=== PATIENT | female | born 2005 | race Caucasian/White ===

== ENCOUNTER 2023-04-21 23:16 | Outpatient (CLI) | payer BC, SELFPAY | END 2023-04-21 23:17 | disposition home or self-care (01) | LOC: AMB 04-26 09:40 | PROVIDERS: Visit Provider Family Medicine | DX: R00.0 Tachycardia, unspecified (principal) | CPT/HCPCS: A0998 ==

== ENCOUNTER 2023-04-22 | Emergency (ER) | payer BC, SELFPAY ==
[2023-04-22 00:06] VITALS: BP 128/79; PULSE 92; RESP 20; TEMP 36.5; O2SAT 97; BMI 22.6
--- NOTE | 2023-04-22 00:20 | ED.GENADULT ---
HPI - General Adult General Chief complaint: Chest Pain Stated complaint: heart palpitations Time Seen by Provider: 04/22/23 00:20 History of Present Illness HPI narrative: Pt aox4, ABCs intact. Pt arrives via [employer] for further evaluation of chest palpitations. Patient states that she has been having difficulty falling asleep at night and tonight she was trying to go sleep around 2100 when she started having chest palpitations and shortness of breath as well as feeling flushed. Patient was signed by EMS but patient decided to come in for further evaluation because she states that it feels different than panic attacks that she's had in the past. 17-year-old woman presenting to the emergency department after trying to go to sleep and suddenly started to feel hot as she gestures to her upper chest and face and then started to feel her heart beating very hard. Does have a history of recurrent panic attacks noting a couple a day but this felt different. She mentions what I would perceive as some worry or anxiety around needing to be up shortly to train for competitive swimming. Believe she was to do some weightlifting. And then had what sounds like a busy day of course work which would of [place] at the end of the day with training again. Has been having trouble sleeping lately and was worried about not being able to fall asleep. She does have some residual lower left chest pain that this sounds to be somewhat reproducible. No preceding cough or cold symptoms. No fever. Was evaluated by EMS and signed but ultimately presenting to the emergency department as she is concerned something else might be going on. Does have a history of asthma and wonders if this might have been playing a role. She is accompanied by a friend and then later her mother arrives. She denies having history of exercise intolerance. No arrhythmia history. No sudden cardiac in family. Related Data Home Medications Medication Instructions Recorded Confirmed bupropion HCl 75 mg tablet 75 mg PO TID 04/22/23 04/22/23 ipratropium 18 mcg-albuterol 103 spray inhalation 04/22/23 mcg/actuation aerosol inhaler Allergies Allergy/AdvReac Type Severity Reaction Status Date / Time No Known Drug Allergies Allergy Verified 04/22/23 00:06 Review of Systems Status of ROS: Reports: 6 or more systems reviewed and unremarkable except as noted in History and below Exam Narrative: Exam Narrative: She does appear somewhat flushed. Mildly anxious. Skin is warm dry. Extremities are well perfused without edema. Lungs are clear. Moving all extremities without difficulty, good strength. Heart with an elevated rate but regular rhythm without murmur rub or gallop. Abdomen is soft and nontender. She is little sore to palpation at the low lower sternum left of midline. No supraclavicular crepitus evident. Neck is supple without lymphadenopathy. Const: Vital Signs, click to edit/add: Vital Signs - 24 hr 04/22/23 00:06 04/22/23 02:03 Temperature 97.7 F Pulse Rate [Pulse Oximeter] 92 69 Respiratory Rate 20 13 Blood Pressure [Ri t Upper Arm] 128/79 Pulse Oximetry 97 100 Oxygen Delivery Me thod Room Air Room Air Documenting provider has reviewed patient's vital signs: yes Course Vital Signs Vital signs: Initial Vital Signs Temperature 97.7 F 04/22/23 00:06 Temperature Source Temporal Artery Scan 04/22/23 00:06 Pulse Rate 92 04/22/23 00:06 Pulse Strength 3+ Normal 04/22/23 00:06 Respiratory Rate 20 04/22/23 00:06 Blood Pressure 128/79 04/22/23 00:06 Blood Pressure Mean 95 04/22/23 00:06 Pulse Oximetry 97 04/22/23 00:06 Oxygen Delivery Method Room Air 04/22/23 00:06 Vital Signs Temperature 97.7 F 04/22/23 00:06 Pulse Rate 92 04/22/23 00:06 Respiratory Rate 20 04/22/23 00:06 Blood Pressure 128/79 04/22/23 00:06 Pulse Oximetry 97 04/22/23 00:06 Oxygen Delivery Method Room Air 04/22/23 00:06 Temperature 97.7 F 04/22/23 00:06 Pulse Rate 69 04/22/23 02:03 Respiratory Rate 13 04/22/23 02:03 Blood Pressure 128/79 04/22/23 00:06 Pulse Oximetry 100 04/22/23 02:03 Oxygen Delivery Method Room Air 04/22/23 02:03 Medical Decision Making MDM Narrative Medical decision making narrative: I suspect this is more of an atypical attack of anxiety for Rosaura. I do not think though it is unreasonable to look for potential arrhythmia. EKG was ordered will be monitored on air sampling and monitoring. Will also do a basic chest x-ray partly given her pain but to evaluate cardiac silhouette and for any further evidence of hypertrophic cardiomyopathy. Costochondritis remains in differential. Did also possible this chest wall just got stressed in this what sounds like intensely stressful. Pneumothorax pneumomediastinum is possible as well. Chest x-ray reviewed by me looks to be WNL. Calms over period of time in the emergency department. No events on monitor. Discuss these events again with Rosaura with her mom present. Rosaura is overall improved during time in the ER. Discuss options of treatment for sleep aid verses sleep aid/anxiolytic I think there is still some chest wall pain occurring here. See patient discharge plan ECG Data Attestation: I personally reviewed and interpreted this ECG as follows: (Sinus rhythm rate of 76. No acute ischemic changes. Initially I thought there were some Q-waves but there is actually upward deflection prior. No delta waves.) Discharge Plan Discharge Clinical Impression: Atypical chest pain, Anxiety attack Patient Disposition: Home w/ Parent or Adult Condition: Improved Additional Instructions: Sounds like you are active enough to provide appropriate distraction. Certainly exercise is therapy. If your hydroxyzine isn't helpful, you can use this lorazepam from [facility] in the short term. Given events of tonight, I would give you permission to take a whole tablet and repeat in an hour if still not asleep; this would not be typical dosing. If in 48 hours your chest is still rather sore, consider taking 400-600 mg of ibuprofen 3 times a day for 3-4 days. Prescriptions: No Action bupropion HCl 75 mg tablet 75 mg PO TID Rx Instructions: administer 6 hours apart ipratropium-albuterol 18-103 mcg/actuation aerosol inhalation Follow Up/Referrals: Provider,Not a Local [Primary Care Provider] - Stand Alone Forms: [employer] Info Instructions
--- NOTE | 2023-04-22 00:46 | CRLHL7_ITS ---
For Patients: As a result of the Cures Act, medical imaging exams and procedure reports are released immediately into your electronic medical record. You may view this report before your referring provider. If you have questions, please contact your health care provider. INDICATION: Evaluate cardiac silhouette, anterior left chest pain TECHNIQUE: Chest radiograph 1 view COMPARISON: None FINDINGS: Mediastinum: The mediastinum is normal in appearance. The heart silhouette is normal in size and morphology. Lung: Both lungs are unremarkable in appearance. No sign of pleural effusion seen. No pneumothorax is identified. Bone and Soft tissue: Trace dextroscoliosis is noted with Michael angle of 12 degrees. IMPRESSION: 1. No acute cardiopulmonary disease is seen. Dictated by: Shaji Leonard MD @ 04/22/2023 01:09:52 (Electronically Signed)
[2023-04-22 02:03] VITALS: PULSE 69; RESP 13; O2SAT 100
== END 2023-04-22 02:04 | disposition home or self-care (01) ==
PROVIDERS: Emergency Provider Family Medicine
DX: R07.89 Other chest pain (principal); F41.9 Anxiety disorder, unspecified
CPT/HCPCS: 71045; 99284

== ENCOUNTER 2024-04-25 10:53 | Outpatient (CLI) | payer OTHER, SELFPAY | END 2024-04-25 10:54 | disposition home or self-care (01) | LOC: AMB 04-28 22:46 | PROVIDERS: Visit Provider Emergency Medicine | DX: R45.851 Suicidal ideations (principal); S81.812A Laceration without foreign body, left lower leg, initial encounter; X78.1XXA Intentional self-harm by knife, initial encounter; Y92.039 Unspecified place in apartment as the place of occurrence of the external cause | CPT/HCPCS: A0425; A0427 ==

== ENCOUNTER 2024-04-25 11:12 | Emergency (ER) | payer OTHER, SELFPAY ==
[2024-04-25 11:15] VITALS: BP 130/85; PULSE 105; RESP 12; TEMP 37.3; O2SAT 99; BMI 22.7
--- NOTE | 2024-04-25 12:11 | ED.GENADULT ---
HPI - General Adult General Date Seen: 04/25/24 Chief complaint: Psychiatric Problem/Disorder Stated complaint: Mental health Time Seen by Provider: 04/25/24 11:13 Source: patient Mode of arrival: ambulatory Limitations: no limitations History of Present Illness HPI narrative: Patient is a 18-year-old silvia at [employer]. Originally from [place]. She has longstanding history of depression and anxiety. She has a primary doctor who prescribes bupropion, she has been on the same dose of that for at least a few years and feels that generally speaking this is managed her depression well. However over the past couple of weeks she has been having more problems with tearfulness, sadness, lack of energy, low mood, difficulty sleeping. She has also increased cutting behaviors which has been a problem in the past but she says she had been doing it recently. Today she cut into her left medial ankle and was concerned it might be deep enough to need medical attention. She is strenuously denies any problems with suicidality, she does express frustration with how little energy she has had. She is on the swim team, she gets of very early every morning, and does admit that she misses her Wellbutrin frequently, she estimates that she misses 2 doses for every dose that she remembers to take. Her mom was on the phone during my conversation with her as well, apparently Rosaura went home for the weekend that seemed to be helpful. Mom notes that she struggles with a fear of letting people down and general stressors at school. She denies any specific problems with relationships or school. Both parents are aware of her mental health struggles and are supportive and highly involved. She has a therapist who she sees regularly, she had been seeing him every other , is now seeing him weekly as of last . Has a good relationship with him and find some very helpful. No significant substance use. Related Data Home Medications ?Medication ?Instructions ?Recorded ?Confirmed bupropion HCl 75 mg tablet 75 mg PO TID 04/22/23 04/22/23 ipratropium 18 mcg-albuterol 103 spray inhalation 04/22/23 mcg/actuation aerosol inhaler Allergies Allergy/AdvReac Type Severity Reaction Status Date / Time No Known Drug Allergies Allergy Verified 04/22/23 00:06 [facility] Social History Smoking Status: Never smoker How often do you have a drink containing alcohol: never AUDIT-C Alcohol total score: 0 Non-prescribed substance use: denies use Exam Narrative: Exam Narrative: Vital signs as noted above. In general, an alert, nontoxic young woman, tearful. Head: Normocephalic, atraumatic. Eyes: Pupils are equal reactive. Extraocular movements are full. Conjunctivae are normal. ENT: Mucous membranes are moist. Throat is normal. Neck: Supple without lymphadenopathy. Heart: Regular rate and rhythm. No murmur or rub. Lungs: Clear bilaterally. No increased work of breathing, crackles or wheezes. Abdomen: Soft and nontender. No organomegaly. Extremities: Well perfused. No edema. No calf tenderness. Pulses intact. She has several superficial cuts on the medial left calf, bleeding controlled, none extend through the dermis. No significant gaping. Neurologic: Patient is alert and oriented to person and place. Speech is fluent. Face is symmetric. Moves all extremities equally. Affect: Tearful. Skin: Warm and dry. Well perfused. Const: Vital Signs, click to edit/add: Vital Signs - 24 hr 04/25/24 11:15 Temperature 99.2 F Pulse Rate [Right] 105 H Respiratory Rate 12 Blood Pressure [Ri ght Upper Arm] 130/85 Pulse Oximetry 99 Oxygen Delivery Me thod Room Air Documenting provider has reviewed patient's vital signs: yes Course Course ED Course: Talked with patient and her mom, dad is apparently on his way here. Will clean and dress the leg wounds, none of these require other specific treatment. It sounds as if she is fairly dialed in with therapy and that that is helpful for her. She is not suicidal and does not pose a risk to herself or others at this time. We did talk about how important it is for her to take her Wellbutrin every day, I suspect that the irregularity of this is a large contributing factor to how poorly she is feeling, given that she felt she was previously well controlled on this medicine. Her dad is here with her now, he has no additional concerns. She does not feel she needs to leave school, would like to go back to campus. We discussed strategy she can use to make sure she is taking her medication daily. If after 2-3 weeks of consistent Wellbutrin, she is not feeling improved, would recommend primary care follow-up to discuss possible medication management. Return any time for significant worsening. Vital Signs Vital signs: Initial Vital Signs Temperature 99.2 F 04/25/24 11:15 Temperature Source Temporal Artery Scan 04/25/24 11:15 Pulse Rate 105 H 04/25/24 11:15 Respiratory Rate 12 04/25/24 11:15 Blood Pressure 130/85 04/25/24 11:15 Blood Pressure Mean 100 04/25/24 11:15 Blood Pressure Position Sitting 04/25/24 11:15 Pulse Oximetry 99 04/25/24 11:15 Oxygen Delivery Method Room Air 04/25/24 11:15 Vital Signs Temperature 99.2 F 04/25/24 11:15 Pulse Rate 105 H 04/25/24 11:15 Respiratory Rate 12 04/25/24 11:15 Blood Pressure 130/85 04/25/24 11:15 Pulse Oximetry 99 04/25/24 11:15 Oxygen Delivery Method Room Air 04/25/24 11:15 Temperature 99.2 F 04/25/24 11:15 Pulse Rate 105 H 04/25/24 11:15 Respiratory Rate 12 04/25/24 11:15 Blood Pressure 130/85 04/25/24 11:15 Pulse Oximetry 99 04/25/24 11:15 Oxygen Delivery Method Room Air 04/25/24 11:15 Discharge Plan Discharge Clinical Impression: Deliberate self-cutting, Depression Patient Disposition: Home w/ Parent or Adult Condition: Stable Instructions: Depression (ED) Additional Instructions: Make sure that you are taking your Wellbutrin every day, either set and alert on your phone, get a pill container marked with days of the week, or other reminders to help make sure that you take it consistently. For sleep, you can use hydroxyzine, melatonin, or both. If after 2-3 weeks of consistently taking her Wellbutrin you are not feeling improved, please follow-up with your primary care doctor to discuss possible medication adjustment. Return to the ER at any time if you feel you are having more trouble. Prescriptions: No Action bupropion HCl 75 mg tablet 75 mg PO TID Rx Instructions: administer 6 hours apart ipratropium-albuterol 18-103 mcg/actuation aerosol inhalation Follow Up/Referrals: Provider,Not a Local [Primary Care Provider] - Stand Alone Forms: [employer] Info Instructions
== END 2024-04-25 12:44 | disposition home or self-care (01) ==
PROVIDERS: Emergency Provider Emergency Medicine
DX: F32.A Depression, unspecified (principal); X78.8XXA Intentional self-harm by other sharp object, initial encounter
CPT/HCPCS: 99284

== ENCOUNTER 2024-11-17 12:03 | Emergency (ER) | payer OTHER, SELFPAY ==
[2024-11-17] VITALS (19 sets, daily range): BP systolic 109–134; BP diastolic 68–88; PULSE 84–113; RESP 26; TEMP 36.7; O2SAT 81–100; BMI 22.7
--- NOTE | 2024-11-17 12:06 | ED_ITS ---
HPI - General Adult General Date Seen: 11/17/24 Chief complaint: Allergic Reaction Stated complaint: severe allergic- tight on throat Time Seen by Provider: 11/17/24 12:06 History of Present Illness HPI narrative: 19-year-old female with a past medical history of severe nut allergies, anxiety, who presents to the ER today with allergic reaction. She inadvertently ate a granola bar that contained cashews just prior to arrival. She arrives at just around noon and she think she probably ate a granola bar 10 or 20 minutes prior to arrival. Immediately she realized her mistake and began to feel tingly in her tongue and some swelling in the back of her mouth. She had her EpiPen with her and self administered a EpiPen within a couple of minutes of eating a cashew. She also felt like the skin on her body was a bit itchy but she did not develop any visible hives. She presented immediately to the emergency department because she has had allergic reactions in the past that caused throat swelling, trouble breathing, and low blood pressure. She has not previously been intubated or hospitalized in the ICU on vasopressors for allergic reaction. Prior to this not ingestion she has been healthy. Related Data Home Medications ?Medication ?Instructions ?Recorded ?Confirmed bupropion HCl 75 mg tablet 75 mg PO TID 04/22/23 04/22/23 ipratropium 18 mcg-albuterol 103 spray inhalation 04/22/23 mcg/actuation aerosol inhaler Previous Rx's ?Medication ?Instructions ?Recorded cetirizine 10 mg capsule (Zyrtec) 10 mg PO DAILY PRN allergy 11/17/24 symptoms #7 caps diphenhydramine HCl 25 mg capsule 25 mg PO TID PRN #10 caps 11/17/24 (Benadryl) epinephrine 0.3 mg/0.3 mL 0.3 ml IM Q5-15M PRN #2 ea 11/17/24 injection, auto-injector (EpiPen) prednisone 20 mg tablet 40 mg (2 x 20 mg) PO DAILY #4 tabs 11/17/24 Allergies Allergy/AdvReac Type Severity Reaction Status Date / Time cashews AdvReac Severe Anaphylaxis Uncoded 11/17/24 12:08 [facility] Social History Smoking Status: Never smoker How often do you have a drink containing alcohol: never AUDIT-C Alcohol total score: 0 Non-prescribed substance use: denies use Exam Narrative: Exam Narrative: Primary Survey: A- patent. Speaking clearly. Phonation normal. No stridor.. Breathing easily. B- breathing easily. Lung sounds clear and equal. Oxygen saturation normal on room air 97% C- no active bleeding. Blood pressure stable. Heart rate 110s. Symmetric pulses and cap refill in 4 extremities. D- alert and oriented x3. GCS 15. No focal deficits. Constitutional: Appears well-developed and well-nourished. Alert. Conversant but somewhat anxious. Non toxic. HENT: Head: Atraumatic. Nose: Nose normal. Mouth/Throat: Oral mucosa is clear and moist. no trismus. Pharynx normal. Tongue normal. I do not see any sign of tongue swelling, pharyngeal swelling, uvula swelling. No trismus. No submandibular swelling. No facial hives or swelling. Tonsils symmetric. No tonsillar enlargement, erythema, or exudate. Stridor normal. Neck range of motion normal. Mallampati score is 1 Eyes: Conjunctivae normal. EOM normal. Pupils equal, round, and reactive to light. No scleral icterus. Neck: Normal range of motion. Neck supple. No tracheal deviation present. Cardiovascular: Normal rate, regular rhythm. No gallop. No friction rub. No murmur heard. Symmetric radial artery pulses Pulmonary/Chest: Effort normal. No stridor. No respiratory distress. No wheezes. No rales. No rhonchi . No tenderness. Abdominal: Soft. No distension. No mass. No tenderness. No rebound. No guarding. Musculoskeletal: RUE: Normal range of motion. No tenderness. No deformity LUE: Normal range of motion. No tenderness. No deformity RLE: Normal range of motion. No edema. No tenderness. No deformity LLE: Normal range of motion. No edema. No tenderness. No deformity Neurological: Alert and oriented to person, place, and time. Normal strength. CN II-VII intact. No sensory deficit. GCS eye subscore is 4. GCS verbal subscore is 5. GCS motor subscore is 6. Normal coordination Skin: Skin is warm and dry. No visible hives. No rash noted. No pallor. Normal capillary refill. Psychiatric: Normal mood. Mildly anxious. Unclear if her anxiety is appropriate given the danger or possibly triggered by the EpiPen or if there may be some component of anxiety attack that is magnifying her allergic reaction symptoms in her mind. Const: Vital Signs, click to edit/add: Vital Signs - 24 hr 11/17/24 12:08 11/17/24 12:38 11/17/24 12:45 Temperature 98.0 F Pulse Rate 99 94 Pulse Rate [Pulse Oximeter] 113 H Respiratory Rate 26 H Blood Pressure Blood Pressure [Ri ght Upper Arm] 127/86 Pulse Oximetry 97 100 100 Oxygen Delivery Me od Room Air 11/17/24 12:46 11/17/24 12:46 11/17/24 13:00 Temperature Pulse Rate 100 100 86 Pulse Rate [Pulse Oximeter] Respiratory Rate Blood Pressure 122/73 122/73 Blood Pressure [Ri ght Upper Arm] Pulse Oximetry 100 100 [facility] 13:01 11/17/24 13:15 11/17/24 13:16 Temperature Pulse Rate 88 87 87 Pulse Rate [Pulse Oximeter] Respiratory Rate Blood Pressure 109/75 116/83 Blood Pressure [Ri ght Upper Arm] Pulse Oximetry 100 81 L [facility] 13:30 11/17/24 13:32 11/17/24 13:33 Temperature Pulse Rate 84 89 87 Pulse Rate [Pulse Oximeter] Respiratory Rate Blood Pressure 115/68 Blood Pressure [Ri ght Upper Arm] Pulse Oximetry 100 100 100 Oxygen Delivery Pr thod 11/17/24 13:45 11/17/24 13:46 11/17/24 14:00 Temperature Pulse Rate 93 86 100 Pulse Rate [Pulse Oximeter] Respiratory Rate Blood Pressure 118/83 Blood Pressure [Ri ght Upper Arm] Pulse Oximetry 100 100 100 Oxygen Delivery Pr thod 11/17/24 14:01 11/17/24 14:15 11/17/24 14:16 Temperature Pulse Rate 96 96 100 Pulse Rate [Pulse Oximeter] Respiratory Rate Blood Pressure 134/84 124/85 Blood Pressure [Ri ght Upper Arm] Pulse Oximetry 100 100 100 Oxygen Delivery Pr thod 11/17/24 14:30 11/17/24 14:31 Temperature Pulse Rate 101 H 103 H Pulse Rate [Pulse Oximeter] Respiratory Rate Blood Pressure 122/88 Blood Pressure [Ri ght Upper Arm] Pulse Oximetry 99 99 Oxygen Delivery Me thod Course Course ED Course: Recheck-doing better. Notes a significant improvement almost to immediately after receiving Benadryl. No longer itchy. Calmer. Still feels as though her tongue might be slightly swollen. No objective visible signs of swelling. Recheck-feeling better. Tongue improving now 2. Recheck-mother at bedside. Patient says she is feeling better. Tongue is ?almost? back to normal. No other objective signs of allergic reaction. Breathing easily. Airway patent. Recheck-1400. Doing well. Asymptomatic. Recheck -1445. Continuing to do well. Asymptomatic. Reevaluation(s) Reevaluation #1: Recheck-16 15. Still doing well. She and her mother are comfortable plans for discharge. She request a school note-written. She also needs to re-registered because she inadvertently gave the registrar hours her old insurance card. I received a fax from [employer] that the version of EpiPen I prescribed for her is not covered by her insurance. I authorized substitution to the covered version of EpiPen for this patient and returned faxed to [employer].. Vital Signs Vital signs: Initial Vital Signs Temperature 98.0 F 11/17/24 12:08 Temperature Source Temporal Artery Scan 11/17/24 12:08 Pulse Rate 113 H 11/17/24 12:08 Respiratory Rate 26 H 11/17/24 12:08 Blood Pressure 127/86 11/17/24 12:08 Blood Pressure Mean 99 11/17/24 12:08 Blood Pressure Position Sitting 11/17/24 12:08 Pulse Oximetry 97 11/17/24 12:08 Oxygen Delivery Method Room Air 11/17/24 12:08 Vital Signs Temperature 98.0 F 11/17/24 12:08 Pulse Rate 113 H 11/17/24 12:08 Respiratory Rate 26 H 11/17/24 12:08 Blood Pressure 127/86 11/17/24 12:08 Pulse Oximetry 97 11/17/24 12:08 Oxygen Delivery Method Room Air 11/17/24 12:08 Temperature 98.0 F 11/17/24 12:08 Pulse Rate 103 H 11/17/24 14:31 Respiratory Rate 26 H 11/17/24 12:08 Blood Pressure 122/88 11/17/24 14:31 Pulse Oximetry 99 11/17/24 14:31 Oxygen Delivery Method Room Air 11/17/24 12:08 Medications Administered Medications: Discontinued Medications Generic Name Dose Route Start Last Admin Trade Name Edil PRN Reason Stop Dose Admin Diphenhydramine HCl 25 mg 11/17/24 12:14 11/17/24 12:36 Diphenhydramine 50 Mg/Ml Inj IVP 11/17/24 12:15 25 mg ONCE ONE Administration Famotidine 20 mg 11/17/24 12:14 11/17/24 12:37 Famotidine 10 Mg/Ml Inj IVP 11/17/24 12:15 20 mg ONCE ONE Administration Methylprednisolone Sodium Succinate 125 mg 11/17/24 12:14 11/17/24 12:37 Methylprednisolone Sod Succ 62.5 Mg/Ml (125) IVP 11/17/24 12:15 125 mg ONCE ONE Administration Medical Decision Making MDM Narrative Medical decision making narrative: This patient presents for evaluation of allergic reaction after she ate a granola bar which contains knots. She has a known nut allergy and has had previous allergic reactions with affected her airway and cause low blood pressure. She self admitted EpiPen prior to arrival and is already starting to feel better.. symptoms are consistent with allergic reaction. Fortunately, here in the ER she does not have any objective signs such as hyper visible swelling or angioedema her tongue or mouth or upper airway structures, hives. She felt her tongue was a little bit swollen prior to arrival neck gradually improved after treatment here in the ER and resolved. No other airway involvement, bronchospasm, GI symptoms, hypotension, or other sign of anaphylaxis. Patient was treated here with medications as noted above. Symptoms improved after meds. Will send home with epipen, steroids, antihistamines. Potential for rebound reaction was discussed. Return of anaphylactic symptoms were discussed with patient and they were instructed to inject epi-pen and call 911 should these symptoms occur. Given the rapidity of resolution, lack of serious systemic symptoms, lack of respiratory difficulty and no oral or pharyngeal swelling, would not admit at this time for anaphylaxis. There is no signs of anaphylactic shock. Discharge Plan Discharge Clinical Impression: Allergic reaction Patient Disposition: Home, Self-Care Condition: Stable Instructions: General Allergic Reaction (ED) Additional Instructions: As we discussed, if you have recurring symptoms of allergic reaction such as itching, hives, swelling in her mouth, tongue, throat, trouble breathing, or if you have any concerns, please use her EpiPen and return to the emergency department right away. To try to help prevent rebound allergic reactions we will put you on a corticosteroid for the next 2 days. I also want you to do antihistamines (Zyrtec during the day because it is non drowsy, and Benadryl at night) Please return to the ER right away if you have any other concerns or problems. Prescriptions: New prednisone 20 mg tablet 40 mg PO DAILY Qty: 4 0RF epinephrine [EpiPen] 0.3 mg/0.3 mL auto-injector 0.3 ml IM Q5-15M PRNQty: 2 0RF Rx Instructions: do not exceed 3 doses per episode Zyrtec 10 mg capsule 10 mg PO DAILY PRN (Reason: allergy symptoms) Qty: 7 0RF diphenhydramine HCl [Benadryl] 25 mg capsule 25 mg PO TID PRNQty: 10 0RF No Action bupropion HCl 75 mg tablet 75 mg PO TID Rx Instructions: administer 6 hours apart ipratropium-albuterol 18-103 mcg/actuation aerosol inhalation Follow Up/Referrals: Provider,Not a Local [Primary Care Provider] - Stand Alone Forms: Work/School Release, [employer] Info Instructions
--- OUTSIDE RECORDS SUMMARY | 2024-11-17 12:06 | XMS_ITS | Clinical Summary ---
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 2 Each 3 4 Active Social History Tobacco Use Types Packs/Day Years Used Date Smoking Tobacco: Never Assessed Interpersonal Safety Answer Date Record ed Are you being hit, kicked, p ushed or yelled at (see row info)? No 11/07/2023 Interpersonal Safety Abuse 12 - 18 Not on file 11/07/2023 Interpersonal Safety Ambulatory Vulnerability No t on file 11/07/2023 Comments Unknown Sex and Gender Information Value Date Recorded Sex Assigned at Not on file Legal Sex Female 11:00 AM CDT Gender Identity Not on file Sexual Orientation Not on file Last Filed Vital Signs Vital Sign Reading Time Taken Comments Blood Pressure 119/65 11/07/2023 8:02 PM CDT Pulse 96 11/07/2023 8:02 PM CDT Temperature 36.4 C (97.6 F) 11/07/2023 7:12 PM CDT Respiratory Rate 18 11/07/2023 7:47 PM CDT Oxygen Saturation 99% 11/07/2023 8:02 PM CDT Inhaled Oxygen Concentration - - Weight 65.3 kg (144 lb) 11/07/2023 7:02 PM CDT Height 170.2 cm (5' 7) 11/07/2023 7:02 PM CDT Body Mass Index 22.55 11/07/2023 7:02 PM CDT Plan of Treatment Health Maintenance Due Date Last Done Comments Tdap 2014 Depression screening for age 12+ 2015 HIV for age 15-65 2018 HPV series for age 9-26 (1 - 3-dose series) 2018 BMI (ht and wt on same day) for age 18+ 2021 Hepatitis C screening for age 18-79 2021 Tetanus booster 2023 ([place]) Influenza for age 9-49 03/20/2024 COVID-19 vaccine series (2023- season) 2024 01/26/2023, 08/16/2021, 12/21/2020, Additional history exists Pap test for age 21-65 2024 Meningococcal series for age 11-21 Aged Out No longer eligible based on patient's age to complete this topic Pneumococcal series for age 6-49 Aged Out No longer eligible based on patient's age to complete this topic Care Teams Afternoon Babysitter Relationship Specialty Start Date End Date Pcp, No . PCP - General 11/07/23
[2024-11-17] MEDS: diphenhydrAMINE 50 MG/ML inj 25 MG IVP (12:36)
[2024-11-17] MEDS: METHYLPREDNISOLONE SOD SUCC 62.5 MG/ML (125) 125 MG IVP (12:37)
[2024-11-17] MEDS: FAMOTIDINE 10 MG/ML inj 20 MG IVP (12:37)
== END 2024-11-17 16:27 | disposition home or self-care (01) ==
PROVIDERS: Emergency Provider Emergency Medicine
DX: T78.1XXA Other adverse food reactions, not elsewhere classified, initial encounter (principal)
CPT/HCPCS: 94761; 96374; 96375; 99283; 99284; J1200; J1308; J2919